=== PATIENT | male | born 1960 | race Caucasian/White ===

== ENCOUNTER → 2016-04-11 | Outpatient (CLI) | payer BC ==
[~2016-04-11] VITALS: Ht 177.8 cm; Wt 147.4 kg
[~2016-04-11] MED LIST: AZOR 10/20 M1 TABLET PO; CARBAMAZEPINE400 MG PO; CATAPRES0.2 MG PO; CORICIDIN HBP1 EACH PO; DOLOPHINE HCL5 MG PO; HYDROCHLOROTHIA25 MG PO; LIPITOR; LIPITOR10 MG PO; NEURONTIN600 MG PO; OXAYDO5 MG PO
[2016-04-11 09:04] VITALS: BP 183/106
== END | disposition home or self-care (01) ==
LOC: OPR 08:23
PROC: B030YZZ Magnetic Resonance Imaging (MRI) of Brain using Other Contrast (ICD-10-PCS; principal; 2016-04-11)
DX: G50.0 Trigeminal neuralgia (principal)
CPT/HCPCS: 70544; 70549; 70553; B4087; J0330; J2250; J3010

== ENCOUNTER 2016-08-28 16:56 | Emergency (ER) | payer BC ==
[~2016-08-28] VITALS: Ht 177.8 cm; Wt 152.2 kg
[2016-08-28 17:49] LABS: BASOPHIL COUNT 0.1 K/uL (0-0.1); EOSINOPHIL (%) 4.3 % (0-5); EOSINOPHIL COUNT 0.4 K/uL (0-0.3); HEMATOCRIT 47.3 % (38.0-50.0); IMMATURE GRANULOCYTE (%) 0.8 % (0.0-0.7); IMMATURE GRANULOCYTE COUNT 0.1 K/uL; INSTRUMENT ABS NEUTROPHIL CT 5.7 K/uL; LYMPHOCYTE COUNT 1.8 K/uL (1.0-2.8); MCH 31.3 PG (29.0-34.0); MCHC 32.8 G/DL (30.0-36.0); MCV 95.4 FL (86-99); MEAN PLAT.VOLUME 9.8 uM^3 (9.0-12.4); MONOCYTE (%) 8.6 % (3-12); MONOCYTE COUNT 0.8 K/uL (0-0.8); NEUTROPHIL (%) 65.3 % (45-76); NEUTROPHIL COUNT 5.7 K/uL (1.8-6.4); PLATELET COUNT 225 K/uL (156-360); RBC DIS.WIDTH-CV 13.8 % (11.8-14.6); RBC DIS.WIDTH-SD 48.7 % (39-53); RED BLOOD COUNT 4.96 M/uL (4.00-5.50); WHITE BLOOD COUNT 8.7 K/uL (4.1-10.2)
[2016-08-28 17:56] LABS: CHLORIDE 106 mEq/L (99-109); POTASSIUM 4.1 mEq/L (3.7-5.4); SODIUM 143 mEq/L (136-147)
[2016-08-28 17:58] LABS: GLUCOSE 92 mg/dL (70-99)
[2016-08-28 17:59] LABS: ANION GAP 13 MEQ/L (2-14)
[2016-08-28 18:02] LABS: GFR ESTIMATE (CALCULATED) > 59 mL/min/
[2016-08-28 18:03] LABS: UREA NITROGEN (BUN) 23 mg/dL (9-23)
[2016-08-28 21:38] VITALS: BP 163/89
== END 2016-08-28 22:30 | disposition short-term general hospital (02) ==
LOC: EME 16:56 → EXP 16:56
PROVIDERS: Physician Assistant
DX: T85.738A Infection and inflammatory reaction due to other nervous system device, implant or graft, initial encounter (principal); L02.01 Cutaneous abscess of face; B96.5 Pseudomonas (aeruginosa) (mallei) (pseudomallei) as the cause of diseases classified elsewhere; I10 Essential (primary) hypertension
CPT/HCPCS: 80048; 85025; 99281; 99284